=== PATIENT | female | born 1990 | race Caucasian/White ===

== ENCOUNTER 2017-01-15 15:59 | Inpatient (IN) | payer OTHER ==
[~2017-01-15] VITALS: Ht 157.5 cm; Wt 56.7 kg
--- NOTE | ~2017-01-15 | PR ---
[place], [place] PROGRESS NOTE NAME: LYNDA MORENO UNIT #: [id number] ROOM: 425 DOCTOR: LENNY WHARTON MD BIRTHDATE: [birth year] DOS: 01/18/2017 SUBJECTIVE: The patient is continuing to complain of pain and she is awaiting a laparotomy this morning. She does not have any complaints of fever, chills, chest pains, palpitations, any bowel or bladder complaints. PHYSICAL EXAMINATION: VITAL SIGNS: Graphic trend shows a pressure of 108/58, pulse is 64, respirations 20, temperature 98.0. LUNGS: Diminished breath sounds, clear. HEART: Regular. ABDOMEN: Soft. Tenderness diffusely. Abdomen is soft and scaphoid. EXTREMITIES: Without any edema. ASSESSMENT AND PLAN: 1. Acute abdominal pain with elevated white cell count with the CT findings of showing a possibility of appendicitis. She is going for a laparotomy this morning. 2. Endometriosis status post total abdominal hysterectomy. She may have endometriosis in other sites, which could be causing her abdominal pain. White cell count has trended down and is down to 11.2. Basic metabolic panel within normal limits. Urine culture shows no bacterial growth. Continue meds. Awaiting Surgical input this morning. LENNY WHARTON MD CM:PNTRANS [phone] LENNY WHARTON MD 01/19/17 0440 interface
--- NOTE | ~2017-01-15 | WRIGHTHP ---
[place], [place] PATIENT HISTORY AND PHYSICAL EXAM [id number] UN[facility] #: [id number] ROOM: 425 DOCTOR: REHAN ROSADO MD BIRTHDATE: [birth year] DOS: 01/15/2017 DIAGNOSES: 1. A 26-year-old female with a past medical history of nicotine smoke dependence. 2. Total hysterectomy for endometriosis. 3. Suicide attempt on 12/24/2014. 4. Generalized anxiety disorder. 5. Major depression, recurrent. The patient presented to the Emergency Department at [place] [facility] with severe right lower quadrant pains starting yesterday. It was going into her right back, starting around 3:00 p.m. The patient with some nausea, but no vomiting, no diarrhea. CT of the abdomen showed possible perforation of the appendix and Dr. Wheatley, the surgeon, reviewed the CAT scan images. I did not see any free air compatible with perforation and the appendix could not be visualized. The patient was admitted for abdominal pains after evaluation by Surgery, who will plan to perform an appendicectomy on Wednesday. The patient says the pain is much better controlled with Dilaudid, but she needs it every 2 hours as compared to every 4 hours. The patient has been able to tolerate some diet and is not vomiting. No chest pains, no shortness of breath, no GI or urinary symptoms. REVIEW OF SYSTEMS: LUNGS: No increasing shortness of breath or wheezing. GASTROINTESTINAL: Some nausea earlier on, but no vomiting or diarrhea or constipation. CARDIOVASCULAR: No chest pain, no palpitations. FAMILY HISTORY: Noncontributory. ALLERGIES: Known allergies to IVP DYE, PENICILLINS, SULFUR AND IODINE. PHYSICAL EXAMINATION: GENERAL: Alert and oriented x 3, in no visible distress. HEENT AND NECK: Extraocular movements are intact. Sclerae are anicteric. Oral mucosa is moist and clean. No obvious facial weakness. Neck is supple without any lymphadenopathy. No thyromegaly. No JVD. No carotid arterial bruits. LUNGS: Clear to auscultation. No wheezing. No rhonchi. CARDIOVASCULAR SYSTEM: Heart rate is regular in rate and rhythm. S1 and S2 normally audible. No significant murmur or any other abnormal cardiac sounds. ABDOMEN: Severe right lower quadrant tenderness and some guarding, no rigidity, no rebound tenderness. EXTREMITIES: Without significant cyanosis or edema. Warm to touch. CENTRAL NERVOUS SYSTEM: Alert and oriented x 3. Cranial nerves II-XII are intact. Speech is normal. The patient is able to move all extremities. Normal muscle strength. Deep tendon reflexes are equal on both sides. Plantars were downgoing. LABORATORY DATA: Urine cultures are negative. CBC: White cell count improved [place], [place] PATIENT HISTORY AND PHYSICAL EXAM NAME: LYNDA MORENO UNIT #: [id number] ROOM: 425 DOCTOR: REHAN ROSADO MD BIRTHDATE: [birth year] to 14,000 from 23,000. Normal serum electrolytes, bilirubin, liver enzymes. CT of the abdomen and pelvis suspected to have free air within the abdomen and pelvis compatible with visceral perforation and no appendix was visualized. Apparently, Dr. Wheatley looked at the CT scan of the abdomen and did not see any signs of perforation or air and he called me and he has decided to operate on the patient on Wednesday because she is clinically improving and he did not think there is any obvious perforation. There is a suspicion of acute appendicitis and he is being treated with Flagyl and Levaquin and followed very closely. The pain is being controlled with Dilaudid and now add a fentanyl patch. 1. Nicotine smoke dependence. The patient encouraged to stop of smoking cigarettes. The patient already on nicotine patch and I added nicotine inhaler to be used as needed. The patient says she will try to stop smoking cigarettes from now on. 2. Generalized anxiety disorder to be treated and controlled. 3. Major depression, recurrent, mild. Patient is not suicidal to be treated and controlled. REHAN ROSADO MD CM:HISPHYS:PATIENT HISTORY AND PHYSICAL EXAMINATION 36 [phone] REHAN ROSADO MD 01/16/172041 interface
--- NOTE | ~2017-01-15 | DS ---
[place], [place] DISCHARGE SUMMARY NAME: LYNDA MORENO UNIT #: [id number] ROOM: 425 DOCTOR: REHAN ROSADO MD BIRTHDATE: [birth year] DOS: 01/19/2017 DISCHARGE DIAGNOSES: 1. Acute appendicitis, status post appendicectomy. The patient is doing well. 2. Hypokalemia, treated with extra potassium supplements. 3. History of endometriosis and abdominal hysterectomy. 4. Suicide attempt on 12/24/2016. 5. Generalized anxiety disorder. 6. Major depression, recurrent. 7. Nicotine smoke dependence. HOSPITAL COURSE: The patient was admitted to [facility] after she presented with severe right lower quadrant pain and some nausea, but no vomiting, no diarrhea, starting around 3 p.m. The pains were going into her right back. The patient was admitted and started on antibiotics and her elevated white cell count 24,000 improved. The patient was finally taken for laparoscopic surgery on Wednesday. An appendectomy was performed. Following appendectomy, the patient still has significant pain and some abdominal distention, but she was seen by her surgeon, Dr. Wheatley and cleared for discharge. The patient is moving her bowels, ambulating and eating, still has some mild nausea off and on. Blood counts were repeated today. Leukocytosis has improved. The patient asked to follow up with her primary care physician and surgery within a week. LABORATORY DATA: White cell count of 13,000 after surgery. Hemoglobin 11.2. Normal serum electrolytes. Potassium level of 3.1 after which she was given more potassium. Nicotine smoke dependence. The patient was started on nicotine patch and inhaler and she wants to continue the nicotine patch at home and stop smoking cigarettes. The patient encouraged to stop. The patient going home on Vicodin as needed along with Toradol as prescribed by surgery. DISCHARGE MANAGEMENT: Nicotine patch 21 mg daily, ranitidine 150 mg daily and Vicodin 1 tablet every 4 hours as needed for pain. Follow up with Dr. Wheatley, the surgeon and Dr. Camacho Foote, her PCP with a week. [place], [place] DISCHARGE SUMMARY NAME: LYNDA MORENO UNIT #: [id number] ROOM: 425 DOCTOR: REHAN ROSADO MD BIRTHDATE: [birth year] REHAN ROSADO MD CM:FERNANDO [phone] REHAN ROSADO MD 01/19/[id number] interface
--- NOTE | ~2017-01-15 | PR ---
[place], [place] PROGRESS NOTE NAME: LYNDA MORENO UNIT #: [id number] ROOM: 425 DOCTOR: REHAN ROSADO MD BIRTHDATE: [birth year] DOS: 01/17/2017 SUBJECTIVE: The patient's abdominal pain is slightly better and Toradol is working well for her. OBJECTIVE: VITAL SIGNS: Blood pressure 120/79, heart rate 71 beats per minute, breathing 20 times per minute, temperature 98.6 degrees Fahrenheit. GENERAL APPEARANCE: The patient is alert and oriented x 3, in no visible distress. HEENT AND NECK: Exam within normal limits. CARDIOVASCULAR SYSTEM: Heart rate is regular in rate and rhythm. S1 and S2 normally audible. LUNGS: Clear to auscultation. ABDOMEN: Abdominal pain and right lower quadrant tenderness, no rigidity, guarding or rebound tenderness. EXTREMITIES: Without significant cyanosis or edema. IMPRESSION: 1. The patient with acute appendicitis going for appendectomy tomorrow. White cell count with antibiotic treatment has improved to 11,000 from 24,000 at admission. The patient is able to tolerate diet. The patient has been on Flagyl and Levaquin. 2. Abdominal pain is controlled with Toradol now and occasional Dilaudid. 3. Nicotine smoke dependence. The patient on nicotine inhaler and nicotine patch. 4. Generalized anxiety disorder treated and controlled. 5. Major depression, recurrent, mild. Patient is not suicidal, was treated and controlled. REHAN ROSADO MD CM:PNTRANS [phone] REHAN ROSADO MD 01/17/17 2258 interface
[~2017-01-15 15:59] MED LIST: ANAPROX DS550 MG PO; ATARAX,VISTARIL50 MG PO; ATIVAN0.5 MG PO; ATIVAN1 MG PO; CIPRO250 MG PO; CLARITIN10 MG PO; CLINDAMYCIN HC150 MG PO; CYMBALTA30 MG PO; DEPO-PROVER150 MG/ML IM; DIFLUCAN150 MG PO; DOXYCYCLINE MO100 MG PO; DULOXETINE HCL60 MG PO; FLAGYL500 MG PO; HYDROCODONE BIT1 T11 PO; LATU40TA PO; MACROBID100 M1 PO; NAPROSYN375 MG PO; NKHM; PERCOCET 325 MG1 TA2 PO; PROZAC20 MG PO; SKELAXIN800 M1 PO; ULTRAM50 MG PO; VIBRA-TAB100 MG PO; VICODIN 5/500 505 M1 PO; VICODIN 5/500 505 MG PO; VICODIN 500 MG-1 TAB PO; VOLTAREN50 M1 PO; XANAX0.25 MG PO; XANAX0.5 MG; ZITHROMAX Z PA250 MG PO; ZITHROMAX250 MG PO
[2017-01-15 16:13] VITALS: BP 108/35
[2017-01-15 16:34] LABS: BILIRUBIN NEGATIVE (NEGATIVE); BLOOD 2+ (NEGATIVE); CLARITY SL CLOUDY (CLEAR); COLOR YELLOW (YELLOW); GLUCOSE NEGATIVE (NEGATIVE); KETONE NEGATIVE (NEGATIVE); LEUKO ESTERASE TRACE (NEGATIVE); NITRITE NEGATIVE (NEGATIVE); PH 5.5 (5.0-9.0); SPECIFIC GRAVITY 1.025 (1.005-1.030); UROBILINOGEN 0.2 E.U./dl (0.2-1.0)
[2017-01-15 16:41] LABS: BACTERIA TRACE; MUCOUS 2+
[2017-01-15 16:44] LABS: BASO # 0.1 10*3/uL (0.0-0.1); BASO % 0.2 % (0.0-1.0); EOS # 0.2 10*3/uL (0.0-0.4); EOS % 0.7 % (1.0-4.0); HEMATOCRIT 39.8 % (37.0-47.0); HEMOGLOBIN 13.6 g/dl (12.0-16.0); LYMPH # 2.3 10*3/uL (1.3-4.4); MEAN CELL VOLUME 92.3 fl (81.0-99.0); MEAN CORPUSCULAR HGB 31.6 pg (27.0-31.0); MEAN CORPUSCULAR HGB CONC 34.2 g/dl (33.0-37.0); MONO # 0.9 10*3/uL (0.1-1.0); NEUT # 19.7 10*3/uL (2.3-7.9); NEUT % 84.5 % (47.0-73.0); PLATELET COUNT AUTOMATED 273 10*3/uL (130-400); RED BLOOD COUNT 4.31 10*6/uL (4.10-5.10); RED CELL DISTRI WIDTH 11.7 % (0-14.5); WHITE BLOOD COUNT 23.4 10*3/uL (4.8-10.8)
[2017-01-15 16:58] LABS: ALBUMIN 3.8 gm/dl (3.1-4.5); ALKALINE PHOSPHATASE 107 U/L (45-117); BUN 11 mg/dl (7-24); CHLORIDE 105 mmol/L (98-107); CREATININE 0.62 mg/dL (0.55-1.02); LIPASE 78 U/L (73-393); POTASSIUM 3.5 mmol/L (3.5-5.1); SGOT/AST 23 IU/L (3-35); SGPT/ALT 35 U/L (12-78); SODIUM 138 mmol/L (136-145); TOTAL PROTEIN 7.8 gm/dL (6.4-8.2)
[2017-01-15 19:28] VITALS: BP 128/84
--- NOTE | 2017-01-15 20:08 | NUR ---
PATIENT RESTING IN BED STATES SHE FEELS BETTER POST PAIN MEDS RESP EASY NO SIGN S OF DISTRESS
[2017-01-15 20:28] VITALS: BP 101/61
[2017-01-15 20:50] VITALS: BP 100/61
--- NOTE | 2017-01-15 20:50 | NUR ---
Time: 849 A 26 year old FEMALE admitted to under services of DR. ASHLEE PETTY,REHAN Macias Pt. arrived via bed from ER. Chief complaint: ABDOMINAL PAIN. SKIP CABA
[2017-01-15] MEDS ORDERED: LEXAPRO20 MG PO (20:56)
[2017-01-15] MEDS ORDERED: IBU800 MG PO (20:56)
[2017-01-15] MEDS ORDERED: PROTONIX40 MG PO (20:56)
[2017-01-15] MEDS ORDERED: NEURONTIN600 MG PO (20:56)
--- NOTE | 2017-01-15 21:00 | NUR ---
SPOKE WITH DR. ROSADO AT THIS TIME FOR ADMISSION ORDERS, ORDERS RECIEVED FOR A STAT CONSULT WITH SURGERY AND THAT THE PATIENT COULD HAVE 1 MG OF IV DILAUDID EVERY 4 HOURS. AND TO GET THE REST OF THE ORDERS FROM DR. CRUZ
--- NOTE | 2017-01-15 21:05 | NUR ---
SPOKE WITH DR. CRUZ AT THIS TIME. DR. CRUZ ORDERS FOR THE PATIENT TO HAVE 1G OF AZACTAM EVERY 8 HOURS, NPO STATUS WITH ICE CHIPS UNTIL MIDNIGHT FOR POSSIBLE SURGERY. NORMAL SALINE TO RUN AT 125 AN HOUR. CBC AND CMP TO BE ORDERED IN THE MORNING. DR. CRUZ ALSO REQUESTED PATIENTS MEDICAL RECORDS FROM [place] TO DETERMINE IF SHE STILL HAS APPENDIX FROM HER HAVING HER HYSTERECTOMY REMOVED IN AUGUST OF THIS YEAR. PATIENT UNSURE IF SHE STILL HAS APPENDIX
--- NOTE | 2017-01-15 21:46 | NUR ---
PRN DILAUDID GIVEN FOR PT COMPLAINTS OF 9/10 ABDOMINAL PAIN. CALL LIGHT WITHIN REACH, WILL MONITOR
--- NOTE | 2017-01-15 23:00 | NUR ---
PER PT, DILAUDID SOMEWHAT EFFECTIVE
--- NOTE | 2017-01-15 23:00 | NUR ---
SIGNED CONSENT RECIEVED FROM PATIENT TO HAVE HER RECORDS REQUESTED FROM [place]
[2017-01-16] VITALS: BP 116/69
--- NOTE | 2017-01-16 00:15 | NUR ---
PT SLEEPING AT THIS TIME. IV FLUIDS INFUSING, BREATHING IS EASY AND REGULAR. CALL LIGHT WITHIN REACH, WILL MONITOR
--- NOTE | 2017-01-16 02:16 | NUR ---
PRN DILAUDID GIVEN FOR PT COMPLAINTS OF ABDOMINAL PAIN. RATING IT A 9/10. CALL LIGHT WITHIN REACH, WILL MONITOR
--- NOTE | 2017-01-16 03:00 | NUR ---
PRN DILAUDID APPEARS EFFECTIVE, PT SLEEPING
[2017-01-16 06:06] LABS: ALBUMIN 3.2 gm/dl (3.1-4.5); ALKALINE PHOSPHATASE 93 U/L (45-117); BUN 8 mg/dl (7-24); CHLORIDE 107 mmol/L (98-107); CREATININE 0.57 mg/dL (0.55-1.02); POTASSIUM 4.2 mmol/L (3.5-5.1); SGOT/AST 14 IU/L (3-35); SGPT/ALT 25 U/L (12-78); SODIUM 140 mmol/L (136-145); TOTAL PROTEIN 6.8 gm/dL (6.4-8.2)
[2017-01-16 07:06] LABS: BASO % 0.1 % (0.0-1.0); EOS # 0.2 10*3/uL (0.0-0.4); EOS % 1.1 % (1.0-4.0); HEMATOCRIT 34.9 % (37.0-47.0); HEMOGLOBIN 11.5 g/dl (12.0-16.0); LYMPH # 2.8 10*3/uL (1.3-4.4); LYMPH % 19.6 % (27.0-41.0); MEAN CELL VOLUME 96.7 fl (81.0-99.0); MEAN CORPUSCULAR HGB 31.9 pg (27.0-31.0); MEAN PLATELET VOLUME 10.8 fl (9.6-12.3); MONO # 0.9 10*3/uL (0.1-1.0); MONO % 6.6 % (3.0-9.0); NEUT # 10.3 10*3/uL (2.3-7.9); NEUT % 72.2 % (47.0-73.0); PLATELET COUNT AUTOMATED 254 10*3/uL (130-400); RED BLOOD COUNT 3.61 10*6/uL (4.10-5.10); RED CELL DISTRI WIDTH 11.9 % (0-14.5); WHITE BLOOD COUNT 14.3 10*3/uL (4.8-10.8)
[2017-01-16 08:00] VITALS: BP 103/62
--- NOTE | 2017-01-16 08:30 | NUR ---
DILAUDID 1 MG GIVEN FOR C/O RLQ PAIN,12/03.
--- NOTE | 2017-01-16 11:07 | NUR ---
DR HOFF ROUNDED AND SPOKE TO DR Nina ROSADO VIA TELEPHONE REGARDING PT HAVING ELECTIVE APPY ON WEDNESDAY, 2016.
[2017-01-16 12:00] VITALS: BP 102/67
--- NOTE | 2017-01-16 12:33 | NUR ---
DILAUDID 1 MG GIVEN FOR C/O RLQ PAIN,12/03.
[2017-01-16 16:00] VITALS: BP 117/64
--- NOTE | 2017-01-16 16:35 | NUR ---
DILAUDID 1 MG GIVEN FOR C/O RLQ PAIN,12/03.
[2017-01-16 20:00] VITALS: BP 115/70
--- NOTE | 2017-01-16 20:45 | NUR ---
PT C/O NAUSEA DURING ASSESSMENT. PT YELLS, "I HAD A BOWEL MOVEMENT YESTERDAY AND NO, I'M NOT PASSING GAS!" THIS NURSE ATTEMPTED PT TEACHING ON MEDS AND DIET. PT NON RECEPTIVE. CALL LIGHT IN REACH.
--- NOTE | 2017-01-16 22:00 | NUR ---
DR. ROSADO NOTIFIED OF PT REQUEST TO REMOVE HEART MONITOR TO SHOWER AND QUESTIONING WHY SHE IS ON THE HEART MONITOR NOW. DR. ROSADO GAVE OK FOR PT TO SHOWER AND EXPLAINED THE NEED FOR HEART MONITOR. INFORMATION RELAYED TO PT.
--- NOTE | 2017-01-16 22:02 | NUR ---
PT C/O NAUSEA. PT STATES IT IS FROM THE DURAGESIC PATCH. PT REMOVED DURAGESIC PATCH AND THREW IT IN THE TRASH CAN. PT REMOVED HEART MONITOR. PT AMBULATING UP TO NURSES STATION AND THREW DURAGESIC PATCH AT ANOTHER NURSE, YELLING, "I'M NOT A DRUG ADDICT." ATTEMPTED TO SPEAK WITH PT AND GIVE PT TEACHING RE DURAGESIC PAIN PATCH, HEART MONITOR, DILAUDID. PT YELLING AT THIS NURSE. PT YELLING SHE IS LEAVING AND BEGINS TO TAKE IV DRSG OFF. ADVISED PT THAT SHE IS WELCOME TO LEAVE BUT THIS NURSE HAS TO REMOVE IV AND HAVE HER SIGN AMA PAPERS. PT SAYS SHE IS GOING TO STAY IF SHE CAN GET A SHOWER AND DILAUDID. ADVISED PT THAT THIS NURSE SPOKE WITH DR. ROSADO AND HE GAVE THE OK TO REMOVE TELEMETRY TO GET A SHOWER AND DILAUDID IS STILL ORDERED FOR PAIN. PT ADVISED THAT SHE NEEDS TO REPLACE HEART MONITOR AFTER SHE IS DONE SHOWERING. PT AGREEABLE. PT HEARD YELLING AND ARGUING WITH MALE VISITOR IN ROOM WHILE IN SHOWER. WILL CONT. TO MONITOR.
--- NOTE | 2017-01-16 22:30 | NUR ---
PT ALLOWED THIS NURSE TO REDRESS IV SITE AND REAPPLY TELEMETRY. PT CONTINUES TO YELL AND CURSE AT THIS NURSE. PT NON RECEPTIVE TO PT TEACHING ON PAIN MEDS AND DIET. PT EATING YOGURT. ASKED PT IF SHE NEEDED ANYTHING ELSE. PT STATES, "SHE DOESN'T WANT ANY OTHER PAIN MEDS EXCEPT DILAUDID." PT ADVISED THAT SHE STILL HAD DILAUDID AVAILABLE. MALE VISITOR REMAINS AT BEDSIDE.
--- NOTE | 2017-01-16 23:40 | NUR ---
PT TALKING TO MOM WHILE THIS NURSE IS ADMINISTERING DILAUDID IVP AND STATES, "THESE NURSES BETTER GET THEIR SHIT TOGETHER AND DO THINS RIGHT OR I'M GONNA TERESA THEM LIKE I SUED [place]. THEN MY DAUGHTER WILL BE SET FOR LIFE." PT RUDE AND DEMANDING WITH STAFF. ALL NEEDS MET. CALL LIGHT IN REACH.
[2017-01-17] VITALS: BP 114/82
--- NOTE | 2017-01-17 | NUR ---
PT RESTING QUIETLY IN BED AT THIS TIME. PRN DILAUDID EFFECTIVE FOR PAIN RELIEF.
--- NOTE | 2017-01-17 04:00 | NUR ---
PT RESTING QUIETLY IN BED WITH EYES CLOSED. NO S/S OF DISTRESS NOTED.
--- NOTE | 2017-01-17 04:40 | NUR ---
24 HR chart check completed.
[2017-01-17 06:09] LABS: BASO % 0.3 % (0.0-1.0); EOS # 0.2 10*3/uL (0.0-0.4); EOS % 1.7 % (1.0-4.0); HEMATOCRIT 34.1 % (37.0-47.0); HEMOGLOBIN 11.5 g/dl (12.0-16.0); LYMPH # 2.7 10*3/uL (1.3-4.4); LYMPH % 23.9 % (27.0-41.0); MEAN CELL VOLUME 95.8 fl (81.0-99.0); MEAN CORPUSCULAR HGB 32.3 pg (27.0-31.0); MEAN CORPUSCULAR HGB CONC 33.7 g/dl (33.0-37.0); MEAN PLATELET VOLUME 10.5 fl (9.6-12.3); MONO # 1.1 10*3/uL (0.1-1.0); MONO % 9.5 % (3.0-9.0); NEUT # 7.2 10*3/uL (2.3-7.9); NEUT % 64.1 % (47.0-73.0); PLATELET COUNT AUTOMATED 242 10*3/uL (130-400); RED BLOOD COUNT 3.56 10*6/uL (4.10-5.10); RED CELL DISTRI WIDTH 11.8 % (0-14.5); WHITE BLOOD COUNT 11.2 10*3/uL (4.8-10.8)
[2017-01-17 06:37] LABS: BUN 3 mg/dl (7-24); CHLORIDE 106 mmol/L (98-107); POTASSIUM 3.9 mmol/L (3.5-5.1); SODIUM 140 mmol/L (136-145)
[2017-01-17 06:40] LABS: CREATININE 0.51 mg/dL (0.55-1.02)
[2017-01-17 08:00] VITALS: BP 97/70
--- NOTE | 2017-01-17 08:44 | NUR ---
DILAUDID 1MG GIVEN PER MAR FOR C/O RLQ PAIN,01/03.
--- NOTE | 2017-01-17 12:02 | NUR ---
DR ALMEIDA ROUNDED AND DISCUSS PROCEDURE IN AM, ORDERS RECEIVED. PT BEHAVIOR ARGUMENTATIVE WITH SURGEON AND WAS NOT RECEPTIVE TO TEACHING AT THIS TIME.
--- NOTE | 2017-01-17 13:55 | NUR ---
DR ALMEIDA ROUNDED AND DISCUSSED PROCEDURE IN OR IN AM.ORDERS RECIEVED. PT WAS NOT RECEPTIVE TO EDUCATION AT THIS TIME. CALL LIGHT IN REACH.
--- NOTE | 2017-01-17 14:00 | NUR ---
EMOTIONAL SUPPORT PROVIDED. PT RECEPTIVE TO TEACHING AT THIS TIME. EXPLAINED AGAIN WHAT DR ALMEIDA HAD SAID. PT NOW CALM AND COOPERATIVE. VOICES NO OTHER NEEDS AT THIS TIME. CALL LIGHT IN REACH.
--- NOTE | 2017-01-17 15:44 | NUR ---
REGAINED IV SITE AFTER MULTIPLE ATTEMPTS IV.started right forearm with #22 protective cath after 4 attempts. Site prepped with Chloroprep. Sterile dressing applied. Patient tolerated procedure well. IV0.9 NS infusing at 100 cc/hr. MEDICATED PT WITH IV TORADOL [address] ALMEIDA'S ORDER, REASSESSED PAIN NOW 5 AND TORADOL EFFECTIVE. UTE FARIAS
[2017-01-17 16:00] VITALS: BP 120/79
--- NOTE | 2017-01-17 18:35 | NUR ---
TORADOL 15 MG GIVEN FOR C/O RLQ PAIN, 910.
--- NOTE | 2017-01-17 20:00 | NUR ---
ASSUMED CARE OF PATIENT. ASSESSMENT COMPLETE. RESTING IN BED. CALL LIGHT IN REACH. WILL CONTINUE TO MONITOR.
--- NOTE | 2017-01-17 21:31 | NUR ---
PT WAS GIVEN PRN DILAUDID FOR PAIN. WILL CONITUE TO MONITOR. CALL LIGHT IN REACH.
--- NOTE | 2017-01-17 22:04 | NUR ---
PT STATES EARLIER DILAUDID "HELPING" WITH PAIN RELIEF.
[2017-01-18] VITALS (9 sets, daily range): BP systolic 102–128; BP diastolic 51–73
--- NOTE | 2017-01-18 02:00 | NUR ---
SLEEPING. RESP EASY AND NONLABORED ON ROOM AIR. NO DISTRESS NOTED. IVF INFUSING PER ORDER WITHOUT DIFFICULTY. CALL LIGHT IN REACH. WILL CONTINUE TO MONITOR.
--- NOTE | 2017-01-18 02:30 | NUR ---
PT STATES MEDICATION WAS EFFECTIVE. WILL CONITNUE TO MONITOR. CALL LIGHT IN REACH
--- NOTE | 2017-01-18 04:06 | NUR ---
pT GIVEN PRN tORDAL FOR PAIN. WILL CONTINUE TO MONITOR.
--- NOTE | 2017-01-18 13:08 | NUR ---
PATIENT BACK FROM SURGERY, IS ALERT AND ORIENTED, REFUSED SCD TO LEFT LEG, STATES HAS PAIN D/T NERVE DAMAGE IN THAT LEG.
--- NOTE | 2017-01-18 13:38 | NUR ---
MEDICATED WITH PRN IV DILAUDID FOR POST OP ABDOMINAL INCISION PAIN.
--- NOTE | 2017-01-18 14:21 | NUR ---
PRN IV DILAUDID EFFECTIVE, PER PATIENT.
--- NOTE | 2017-01-18 15:00 | NUR ---
ASSUMED CARE OF PT AT THIS TIME, PT RESTING IN BED AT THIS TIME, CALL LIGHT WITH IN REACH
--- NOTE | 2017-01-18 15:59 | NUR ---
PT C/O INCISIONAL PAIN REQUESTED AT ADMINSITERED DILAUDID ORDERED, WILL MONITOR EFFECTS
--- NOTE | 2017-01-18 16:59 | NUR ---
PT REPORTS DECREASED PAIN LEVEL AND REPORTS THAT DILAUDID IS EFFECTIVE
--- NOTE | 2017-01-18 22:03 | NUR ---
PT C/O PAIN IN THE ABDOMINAL INCISIONS, REQUSTED PRN PAIN MEDICATION, ADMINSITRED DILAUDID IV PRN PER ORDERS, WILL MONITOR EFFECTS
--- NOTE | 2017-01-18 23:03 | NUR ---
PT RESTING IN BED WATCHING TV, PRN PAIN MEDICATION EFFECTIVE AT THIS TIME, NO FUTHER C/O PAIN, CALL LIGHT WITH IN REACH
[2017-01-19] VITALS: BP 125/69
--- NOTE | 2017-01-19 00:03 | NUR ---
CALLED AND SPOKE TO DR ALMEIDA TO QUESTION ORDER FOR LR @ 125 ML/HR. STATES ORDER CAN BE D/C'D LONG PT IS HAVING GOOD ORAL INTAKE
--- NOTE | 2017-01-19 02:25 | NUR ---
PT C/O PAIN, REQUESTED PRN PAIN MEDICATION, PT AGITIATED AT THIS TIME, STATING THAT SHE IS NOT A JUNKIE, BECOMING INCREASING AGGITATED WHILE TALKING, PT ANGRY AT STAFF, ANGRY AT SURGEON, STATING THAT IF SHE IS UP THEN HE NEEDS TO BE UP TO, STATES THAT SHE HAS A LAWSUIT AGAINST [facility] AND IS NOT AFRAID TO FILE ONE AGAINST HERE, PT STATES THAT WANT PAIN MEDICATIONS UPON ATTEMPTING TO FLUSH LINE WITH NSS, AREA BECAME PAINFUL AND SITE WOULD NOT FLUSH, PT STATES TO CALL THE MD, SHE HAS BEEN THROUGH ENOUGH AND REFUSES TO HAVE IV LINE REESTABLISHED, PT STATES THAT SHE HAS BEEN STOPPED FROM ALL MEDICATIONS, AND STATES THAT SHE HAS NERVE DAMAGE FROM PREVIOUS SURGERY. CALL PLACED TO DR ALMEIDA, AND UPDATED ON PT, DR ALMEIDA SAID TO D/C IV ANTIBIOTICS, AND TO GIVE PO MEDICATIONS FOR PAIN. PT MEDICATED WITH NORCO PO PRN PER ORDERS, WILL MONITOR EFFECTS
--- NOTE | 2017-01-19 03:00 | NUR ---
PT CALLED VISITOR IN AT THIS TIME, MALE ARRIVED TO FLOOR ASKED WHERE PTS ROOM WAS, VISITOR DIRECTED TO ROOM AND DOOR SHUT
--- NOTE | 2017-01-19 03:30 | NUR ---
PT HAS NO COMPLIANTS AT THIS TIME, CALL LIGHT WITH IN [place] [facility]
--- NOTE | 2017-01-19 06:20 | NUR ---
PT REFUSING TO HAVE LABS DRAWN AT THIS TIME, STATING THAT SHE HAS BEEN TAKING OFF HER PAIN MEDICATIONS, PAIN MEDICATIONS STILL AVAILABLE THROUGH IV, PT REFUSED TO HAVE IV RESTARTED
--- NOTE | 2017-01-19 06:26 | NUR ---
PT REPORTED TO STONE CHIMNEY MASON THAT SHE HAS BEEN TAKEN OFF HER PAIN MEDICATIONS IS REFUSING TO HAVE LABS DRAWN AT THIS TIME, NOTIFIED
--- NOTE | 2017-01-19 06:29 | NUR ---
CALL PLACED TO AT THIS TIME, MESSAGE LEFT FOR HIM TO RETURN PHONE CALL
--- NOTE | 2017-01-19 06:39 | NUR ---
RETURNED CALL, NEW ORDER TO HAVE NORCO EVERY 4 HOURS PO PRN
[2017-01-19 08:00] VITALS: BP 98/52
--- NOTE | 2017-01-19 10:20 | NUR ---
WHEN PATIENT GIVEN HER MEDICATION WAS ADVISED THAT PATIENT HAD NO IV FOR PAIN MEDICATION. NORCO WAS OFFERED PER ORDER AND PATIENT REFUSED AND SAID THAT IT DID NOT WORK. PATIENT REFUSED TO HAVE ANOTHER IV PLACED. PATIENT WANTED DILAUDID IN TABLET FORM. WENT TO THE NURSE DESK AND CALLED DR. ROSADO. WHILE LOOKING FOR NUMBER, THE BOYFRIEND SAID SHE WANTED DILAUDID OR ULTRAM OR SHE WAS WALKING OUT THE DOOR. DR. ROSADO STATED TO CHANGE THE ORDER TO TO TABLET FORM.
--- NOTE | 2017-01-19 10:30 | NUR ---
BOYFRIEND CAME TO NURSE DESK AND ASKED FOR W/C SO HE COULD TAKE THE PATIENT OUTSIDE. HE STATED THAT SHE HAD FILLED OUT A FORM. WHILE LOOKING AT THE FORM THE BOYFRIEND LEFT THE DESK. SEARCH DIRECTOR WAS CALLED AND ASKED ABOUT THE FORM. AFTER HANGING UP THE PHONE WENT TO THE ROOM TO ADVISE PATIENT THAT THE MEDICATION WAS ORDERED AND THAT SHE COULD NOT GO OUT AT THIS TIME AND THE ROOM WAS EMPTY.
--- NOTE | 2017-01-19 11:19 | NUR ---
AT 1119 PATIENT REQUESTED DILAUDID FOR PAIN IN ABDOMEN, 01/03. PATIENT LYING IN BED, EYES CLOSED.
--- NOTE | 2017-01-19 12:00 | NUR ---
AT 1200 PATIENT SLEEPING IN BED, PAIN MEDICATION APPARENTLY EFFECTIVE. NO S/S OF DISTRESS.
--- NOTE | 2017-01-19 15:43 | NUR ---
AT 1543 PATIENT REQUESTED MEDICATION FOR PAIN 8/10 IN ABDOMEN, DILAUDID GIVEN PER ORDER.
[2017-01-19 16:00] VITALS: BP 110/70
[2017-01-19 16:52] LABS: BASO % 0.2 % (0.0-1.0); EOS % 0.3 % (1.0-4.0); HEMOGLOBIN 11.2 g/dl (12.0-16.0); LYMPH # 3.9 10*3/uL (1.3-4.4); LYMPH % 29.1 % (27.0-41.0); MEAN CORPUSCULAR HGB 31.5 pg (27.0-31.0); MEAN CORPUSCULAR HGB CONC 33.9 g/dl (33.0-37.0); MEAN PLATELET VOLUME 10.2 fl (9.6-12.3); MONO % 7.3 % (3.0-9.0); NEUT # 8.5 10*3/uL (2.3-7.9); NEUT % 62.7 % (47.0-73.0); PLATELET COUNT AUTOMATED 286 10*3/uL (130-400); RED BLOOD COUNT 3.55 10*6/uL (4.10-5.10); RED CELL DISTRI WIDTH 11.7 % (0-14.5); WHITE BLOOD COUNT 13.5 10*3/uL (4.8-10.8)
[2017-01-19 17:07] LABS: ALBUMIN 3.1 gm/dl (3.1-4.5); ALKALINE PHOSPHATASE 100 U/L (45-117); BUN 10 mg/dl (7-24); CHLORIDE 105 mmol/L (98-107); CREATININE 0.61 mg/dL (0.55-1.02); POTASSIUM 3.1 mmol/L (3.5-5.1); SGOT/AST 13 IU/L (3-35); SGPT/ALT 20 U/L (12-78); SODIUM 139 mmol/L (136-145); TOTAL PROTEIN 7.3 gm/dL (6.4-8.2)
[2017-01-19] MEDS ORDERED: NICODERM T (18:38)
[2017-01-19] MEDS ORDERED: NORCO 5/325 PO (18:38)
[2017-01-19] MEDS ORDERED: KETOROLAC15 MG/1 M2 PO (18:38)
--- NOTE | 2017-01-19 19:51 | NUR ---
Discharge instructions reviewed with patient/family. Patient receptive and verbalizes understanding. Follow-up care arranged. Written instructions given to patient/family. MIGUEL ANGELO
== END 2017-01-19 19:51 | disposition home or self-care (01) | DRG 341 ==
LOC: ED 15:59 → EDHOLD 19:40 → 4E 19:40 → EDHOLD 19:41 → 4E 20:22
PROVIDERS: Physician Assistant; ADMIT Internal Medicine
PROC: 0DTJ4ZZ Resection of Appendix, Percutaneous Endoscopic Approach (ICD-10-PCS; principal; 2017-01-19)
DX: K37 Unspecified appendicitis (principal); K65.9 Peritonitis, unspecified; F32.9 Major depressive disorder, single episode, unspecified; F10.20 Alcohol dependence, uncomplicated; F41.1 Generalized anxiety disorder; F17.210 Nicotine dependence, cigarettes, uncomplicated; G89.29 Other chronic pain; R10.2 Pelvic and perineal pain; Z88.0 Allergy status to penicillin; Z88.2 Allergy status to sulfonamides; Z90.710 Acquired absence of both cervix and uterus; Z82.49 Family history of ischemic heart disease and other diseases of the circulatory system; Z81.8 Family history of other mental and behavioral disorders; Z91.041 Radiographic dye allergy status

== ENCOUNTER → 2017-01-29 | Outpatient (CLI) | payer OTHER ==
[~2017-01-29] MED LIST changes: +IBU800 MG PO; +KETOROLAC15 MG/1 M2 PO; +LEXAPRO20 MG PO; +NEURONTIN600 MG PO; +NICODERM T; +NORCO 5/325 PO; +PROTONIX40 MG PO
== END | disposition home or self-care (01) ==
LOC: US 13:27
DX: R60.0 Localized edema (principal)

== ENCOUNTER → 2017-02-08 | Outpatient (CLI) | payer OTHER | END | disposition home or self-care (01) | LOC: US 09:30 | DX: I73.9 Peripheral vascular disease, unspecified (principal); L60.8 Other nail disorders ==

== ENCOUNTER → 2017-06-30 | Outpatient (CLI) | payer OTHER ==
[2017-06-30 17:54] LABS: CPK 70 U/L (26-192)
== END | disposition home or self-care (01) ==
LOC: LAB 17:02
PROVIDERS: Internal Medicine
DX: Z13.21 Encounter for screening for nutritional disorder (principal); Z13.1 Encounter for screening for diabetes mellitus; Z13.220 Encounter for screening for lipoid disorders

== ENCOUNTER 2017-08-10 10:25 | Emergency (ER) | payer OTHER ==
[~2017-08-10] VITALS: Ht 157.4 cm; Wt 57.6 kg
[2017-08-10] MEDS ORDERED: ATIVAN0.5 MG PO (12:05)
== END 2017-08-10 11:41 | disposition home or self-care (01) ==
LOC: ED 10:25
DX: F41.9 Anxiety disorder, unspecified (principal); F17.200 Nicotine dependence, unspecified, uncomplicated; Z98.51 Tubal ligation status; Z79.899 Other long term (current) drug therapy; Z91.041 Radiographic dye allergy status; Z88.0 Allergy status to penicillin; Z88.2 Allergy status to sulfonamides

== ENCOUNTER 2017-11-18 22:35 | Emergency (ER) | payer OTHER ==
[~2017-11-18] VITALS: Ht 157.4 cm; Wt 59.0 kg
[2017-11-18] MEDS ORDERED: NEURONTIN300 MG PO (22:40)
[2017-11-18] MEDS ORDERED: ESTRADIOL1 EAC5 TD (22:40)
[2017-11-18 23:30] LABS: BASO % 0.4 % (0.0-1.0); EOS # 0.2 10*3/uL (0.0-0.4); EOS % 2.2 % (1.0-4.0); HEMATOCRIT 38.1 % (37.0-47.0); HEMOGLOBIN 12.6 g/dl (12.0-16.0); LYMPH # 4.1 10*3/uL (1.3-4.4); LYMPH % 36.5 % (27.0-41.0); MEAN CELL VOLUME 94.3 fl (81.0-99.0); MEAN CORPUSCULAR HGB 31.2 pg (27.0-31.0); MEAN CORPUSCULAR HGB CONC 33.1 g/dl (33.0-37.0); MEAN PLATELET VOLUME 10.2 fl (9.6-12.3); MONO # 0.9 10*3/uL (0.1-1.0); MONO % 8.2 % (3.0-9.0); NEUT # 5.8 10*3/uL (2.3-7.9); NEUT % 52.5 % (47.0-73.0); PLATELET COUNT AUTOMATED 258 10*3/uL (130-400); RED BLOOD COUNT 4.04 10*6/uL (4.10-5.10); RED CELL DISTRI WIDTH 12.1 % (0-14.5); WHITE BLOOD COUNT 11.1 10*3/uL (4.8-10.8)
[2017-11-18 23:46] LABS: BILIRUBIN NEGATIVE (NEGATIVE); BLOOD NEGATIVE (NEGATIVE); CLARITY CLEAR (CLEAR); COLOR YELLOW (YELLOW); GLUCOSE NEGATIVE (NEGATIVE); KETONE TRACE (NEGATIVE); LEUKO ESTERASE NEGATIVE (NEGATIVE); NITRITE NEGATIVE (NEGATIVE); PH 6.5 (5.0-9.0)
[2017-11-18 23:47] LABS: ALBUMIN 4.3 gm/dl (3.1-4.5); ALKALINE PHOSPHATASE 115 U/L (45-117); BUN 13 mg/dl (7-24); CHLORIDE 107 mmol/L (98-107); CREATININE 0.72 mg/dL (0.55-1.02); SGOT/AST 27 IU/L (3-35); SGPT/ALT 40 U/L (12-78); SODIUM 142 mmol/L (136-145); TOTAL PROTEIN 7.5 gm/dL (6.4-8.2)
[2017-11-18 23:49] LABS: INTERNATIONAL NORM RATIO 0.9 (2.0-3.5)
[2017-11-18 23:52] LABS: BACTERIA 1+
== END 2017-11-19 07:42 | disposition home or self-care (01) ==
LOC: ED 22:35
PROVIDERS: Physician Assistant
DX: R10.2 Pelvic and perineal pain (principal); R50.9 Fever, unspecified; F17.200 Nicotine dependence, unspecified, uncomplicated; Z90.710 Acquired absence of both cervix and uterus; Z91.041 Radiographic dye allergy status; Z88.0 Allergy status to penicillin; Z88.2 Allergy status to sulfonamides

== ENCOUNTER 2018-03-10 12:19 | Emergency (ER) | payer OTHER ==
[~2018-03-10] VITALS: Ht 157.4 cm; Wt 61.2 kg
[~2018-03-10 12:19] MED LIST changes: +ESTRADIOL1 EAC5 TD; +NEURONTIN300 MG PO
[2018-03-10 12:44] LABS: BASO # 0.1 10*3/uL (0.0-0.1); BASO % 0.5 % (0.0-1.0); EOS # 0.1 10*3/uL (0.0-0.4); EOS % 1.1 % (1.0-4.0); HEMATOCRIT 40.2 % (37.0-47.0); HEMOGLOBIN 13.4 g/dl (12.0-16.0); LYMPH % 29.4 % (27.0-41.0); MEAN CELL VOLUME 95.5 fl (81.0-99.0); MEAN CORPUSCULAR HGB 31.8 pg (27.0-31.0); MEAN CORPUSCULAR HGB CONC 33.3 g/dl (33.0-37.0); MEAN PLATELET VOLUME 10.2 fl (9.6-12.3); MONO # 0.6 10*3/uL (0.1-1.0); MONO % 6.3 % (3.0-9.0); NEUT # 6.3 10*3/uL (2.3-7.9); NEUT % 62.4 % (47.0-73.0); PLATELET COUNT AUTOMATED 278 10*3/uL (130-400); RED BLOOD COUNT 4.21 10*6/uL (4.10-5.10); RED CELL DISTRI WIDTH 12.1 % (0-14.5); WHITE BLOOD COUNT 10.1 10*3/uL (4.8-10.8)
[2018-03-10 12:54] LABS: ACT PARTIAL THROMBO TIME 25.1 SECONDS (20.8-31.5)
[2018-03-10 13:01] LABS: ALBUMIN 4.4 gm/dl (3.1-4.5); ALKALINE PHOSPHATASE 97 U/L (45-117); BUN 9 mg/dl (7-24); CHLORIDE 106 mmol/L (98-107); LIPASE 114 U/L (73-393); POTASSIUM 3.8 mmol/L (3.5-5.1); SGOT/AST 20 IU/L (3-35); SGPT/ALT 27 U/L (12-78); SODIUM 139 mmol/L (136-145); TOTAL PROTEIN 8.2 gm/dL (6.4-8.2)
[2018-03-10 13:30] LABS: BILIRUBIN NEGATIVE (NEGATIVE); BLOOD NEGATIVE (NEGATIVE); CLARITY SL CLOUDY (CLEAR); COLOR YELLOW (YELLOW); GLUCOSE NEGATIVE (NEGATIVE); KETONE NEGATIVE (NEGATIVE); LEUKO ESTERASE NEGATIVE (NEGATIVE); NITRITE NEGATIVE (NEGATIVE); UROBILINOGEN 0.2 E.U./dl (0.2-1.0)
[2018-03-10 13:42] LABS: EPITHELIAL CELLS 21-30; MUCOUS 1+; RBC 0-2 rbc/hpf (0-2); WBC 16-20 wbc/hpf (0-5)
[2018-03-10] MEDS ORDERED: VICODIN 5-3001 EACH PO (15:35)
[2018-03-10] MEDS ORDERED: Zofran4 MG SL (15:35)
== END 2018-03-10 16:10 | disposition home or self-care (01) ==
LOC: ED 12:19
PROVIDERS: Nurse Practitioner Family
DX: R10.32 Left lower quadrant pain (principal); R32 Unspecified urinary incontinence; R11.2 Nausea with vomiting, unspecified; Z91.041 Radiographic dye allergy status; Z88.0 Allergy status to penicillin; Z88.2 Allergy status to sulfonamides; Z90.710 Acquired absence of both cervix and uterus; Z90.722 Acquired absence of ovaries, bilateral; Z90.49 Acquired absence of other specified parts of digestive tract

== ENCOUNTER → 2018-08-17 | Outpatient (CLI) | payer OTHER ==
[~2018-08-17] MED LIST changes: +VICODIN 5-3001 EACH PO; +Zofran4 MG SL
== END | disposition home or self-care (01) ==
LOC: ORTHO 01:29
DX: M25.531 Pain in right wrist (principal); M25.532 Pain in left wrist

== ENCOUNTER → 2018-11-09 | Outpatient (CLI) | payer OTHER | END | disposition home or self-care (01) | LOC: MAMMO 09:00 | DX: N64.52 Nipple discharge (principal); N63.0 Unspecified lump in unspecified breast; R07.81 Pleurodynia ==

== ENCOUNTER → 2019-03-03 | Outpatient (CLI) | payer OTHER ==
[2019-03-03 10:46] LABS: HEMATOCRIT 44.5 % (37.0-47.0); HEMOGLOBIN 14.7 g/dl (12.0-16.0); MEAN CELL VOLUME 94.9 fl (81.0-99.0); MEAN CORPUSCULAR HGB 31.3 pg (27.0-31.0); MEAN PLATELET VOLUME 10.1 fl (9.6-12.3); RED BLOOD COUNT 4.69 10*6/uL (4.10-5.10); RED CELL DISTRI WIDTH 11.6 % (0-14.5); WHITE BLOOD COUNT 8.6 10*3/uL (4.8-10.8)
[2019-03-03 11:23] LABS: ALBUMIN 4.5 gm/dl (3.1-4.5); ALKALINE PHOSPHATASE 99 U/L (45-117); BUN 10 mg/dl (7-24); CHLORIDE 105 mmol/L (98-107); CHOLESTEROL 238 mg/dL (<200); CREATININE 0.81 mg/dL (0.55-1.02); HDL CHOLESTEROL 44 mg/dl (40-60); LDL CHOLESTEROL 150 mg/dL (9-159); SGOT/AST 21 IU/L (3-35); SGPT/ALT 24 U/L (12-78); SODIUM 138 mmol/L (136-145); TOTAL PROTEIN 8.8 gm/dL (6.4-8.2); TRIGLYCERIDES 220 mg/dl (<150); VLDL CHOLESTEROL 44 mg/dL (6-40)
[2019-03-03 11:29] LABS: THYROID STIM HORMONE (HS) 0.706 uIU/ml (0.358-4.75)
[2019-03-03 12:33] LABS: VITAMIN D, 25-HYDROXY 24.7 ng/mL (30-100)
[2019-03-04 06:09] LABS: FOLLICLE STIMULATING HORMONE 63.5 mIU/mL (.); LUTEINIZING HORMONE 004283 50.2 mIU/mL (.)
[2019-03-05 08:15] LABS: TESTOSTERONE FREE, (DIRECT) 0.7 pg/mL (0.0-4.2)
[2019-03-07 03:04] LABS: DEHYDROEPIANDROSTERONE 004100 246 ng/dL (31-701)
== END | disposition home or self-care (01) ==
LOC: LAB 10:11
PROVIDERS: Family Medicine
DX: R53.83 Other fatigue (principal); R51 Headache; R63.5 Abnormal weight gain; R41.3 Other amnesia

== ENCOUNTER → 2019-03-07 | Outpatient (CLI) | payer OTHER ==
[2019-03-08 06:05] LABS: TOTAL PROTEIN, SERUM 7.3 g/dL (6.0-8.5)
[2019-03-08 16:06] LABS: ALBUMIN 3.6 g/dL (2.9-4.4); ALPHA-1-GLOBULIN 0.2 g/dL (0.0-0.4); ALPHA-2-GLOBULIN 1.1 g/dL (0.4-1.0); BETA GLOBULIN 1.1 g/dL (0.7-1.3); GAMMA GLOBULIN 1.3 g/dL (0.4-1.8); GLOBULIN, TOTAL 3.7 g/dL (2.2-3.9); M-SPIKE Not Observed g/dL (Not Observed)
[2019-03-09 13:07] LABS: ALPHA-1-GLOBULIN, URINE 2.8 % (.); ALPHA-2-GLOBULIN, URINE 20.1 % (.); BETA GLOBULIN, URINE 28.2 % (.); GAMMA GLOBULIN, URINE 15.8 % (.); M-SPIKE, % Not Observed % (Not Observed); PROTEIN,TOTAL - URINE RANDOM 16.1 mg/dL (Not Estab.)
== END | disposition home or self-care (01) ==
LOC: LAB 09:55
PROVIDERS: Family Medicine
DX: E88.09 Other disorders of plasma-protein metabolism, not elsewhere classified (principal)

== ENCOUNTER → 2019-05-08 | Outpatient (CLI) | payer OTHER ==
[~2019-05-08] MED LIST changes: +MEDROL DOSEPAK4 MG PO; +NAPROSYN500 MG PO
== END | disposition home or self-care (01) ==
LOC: RAD 13:12
DX: M81.0 Age-related osteoporosis without current pathological fracture (principal); M41.9 Scoliosis, unspecified; Z90.710 Acquired absence of both cervix and uterus

== ENCOUNTER 2019-05-11 13:29 | Emergency (ER) | payer OTHER ==
[~2019-05-11] VITALS: Ht 157.4 cm; Wt 63.5 kg
[~2019-05-11 13:29] MED LIST changes: -MEDROL DOSEPAK4 MG PO; -NAPROSYN500 MG PO
[2019-05-11] MEDS ORDERED: NAPROSYN500 MG PO (15:36)
[2019-05-11] MEDS ORDERED: MEDROL DOSEPAK4 MG PO (15:36)
== END 2019-05-11 15:46 | disposition home or self-care (01) ==
LOC: ED 13:29
DX: G89.29 Other chronic pain (principal); M54.6 Pain in thoracic spine; M79.602 Pain in left arm; M79.601 Pain in right arm; R41.0 Disorientation, unspecified; R11.0 Nausea; Z91.041 Radiographic dye allergy status; Z88.0 Allergy status to penicillin; Z88.2 Allergy status to sulfonamides; Z79.899 Other long term (current) drug therapy; Z90.49 Acquired absence of other specified parts of digestive tract; Z90.710 Acquired absence of both cervix and uterus

== ENCOUNTER 2019-06-01 14:53 | Emergency (ER) | payer OTHER ==
[~2019-06-01] VITALS: Ht 157.4 cm; Wt 63.5 kg
[~2019-06-01 14:53] MED LIST changes: +MEDROL DOSEPAK4 MG PO; +NAPROSYN500 MG PO
[2019-06-01] MEDS ORDERED: IBU800 MG PO (16:47)
== END 2019-06-01 17:00 | disposition home or self-care (01) ==
LOC: ED 14:53
DX: S63.502A Unspecified sprain of left wrist, initial encounter (principal); M81.0 Age-related osteoporosis without current pathological fracture; Z90.710 Acquired absence of both cervix and uterus; Z91.041 Radiographic dye allergy status; Z88.0 Allergy status to penicillin; Z88.2 Allergy status to sulfonamides; Z79.899 Other long term (current) drug therapy; W01.0XXA Fall on same level from slipping, tripping and stumbling without subsequent striking against object, initial encounter; Y93.89 Activity, other specified; Y92.89 Other specified places as the place of occurrence of the external cause; Y99.8 Other external cause status

== ENCOUNTER 2019-06-10 10:36 | Emergency (ER) | payer OTHER ==
[~2019-06-10] VITALS: Ht 157.4 cm; Wt 63.5 kg
[2019-06-10] MEDS ORDERED: VALTREX1000 MG PO (12:15)
[2019-06-10] MEDS ORDERED: PREDNISONE20 M1 PO (12:15)
== END 2019-06-10 12:40 | disposition home or self-care (01) ==
LOC: ED 10:36
DX: B02.9 Zoster without complications (principal); F41.9 Anxiety disorder, unspecified; F32.9 Major depressive disorder, single episode, unspecified; F17.200 Nicotine dependence, unspecified, uncomplicated; Z88.0 Allergy status to penicillin; Z91.041 Radiographic dye allergy status; Z88.2 Allergy status to sulfonamides; Z79.2 Long term (current) use of antibiotics; Z79.899 Other long term (current) drug therapy; Z90.49 Acquired absence of other specified parts of digestive tract

== ENCOUNTER 2019-12-10 17:59 | Emergency (ER) | payer OTHER ==
[~2019-12-10] VITALS: Wt 59.0 kg
[~2019-12-10 17:59] MED LIST changes: +PREDNISONE20 M1 PO; +VALTREX1000 MG PO
[2019-12-10 18:31] LABS: BACTERIA 1+; BILIRUBIN NEGATIVE (NEGATIVE); BLOOD 3+ (NEGATIVE); CLARITY CLOUDY (CLEAR); COLOR YELLOW (YELLOW); GLUCOSE NEGATIVE (NEGATIVE); KETONE TRACE (NEGATIVE); LEUKO ESTERASE 2+ (NEGATIVE); MUCOUS 2+; NITRITE NEGATIVE (NEGATIVE); RBC 51-100 rbc/hpf (0-2); SPECIFIC GRAVITY 1.025 (1.005-1.030); WBC 51-100 wbc/hpf (0-5)
[2019-12-10] MEDS ORDERED: KEFLEX500 M1 PO (18:51)
[2019-12-10] MEDS ORDERED: PYRIDIUM100 MG PO (18:51)
== END 2019-12-10 19:07 | disposition home or self-care (01) ==
LOC: ED 17:59
PROVIDERS: Emergency Medicine
DX: N39.0 Urinary tract infection, site not specified (principal); F17.200 Nicotine dependence, unspecified, uncomplicated; Z91.041 Radiographic dye allergy status; Z88.0 Allergy status to penicillin; Z88.2 Allergy status to sulfonamides

== ENCOUNTER 2020-01-28 17:00 | Emergency (ER) | payer OTHER ==
[~2020-01-28] VITALS: Ht 157.4 cm; Wt 61.2 kg
[~2020-01-28 17:00] MED LIST changes: +KEFLEX500 M1 PO; +PYRIDIUM100 MG PO
== END 2020-01-28 19:54 | disposition home or self-care (01) ==
LOC: ED 17:00
DX: R51 Headache (principal); Z88.8 Allergy status to other drugs, medicaments and biological substances; Z88.0 Allergy status to penicillin; Z88.2 Allergy status to sulfonamides; Z79.899 Other long term (current) drug therapy

== ENCOUNTER → 2020-06-24 | Outpatient (CLI) | payer OTHER | END | disposition home or self-care (01) | LOC: RAD 16:14 | PROVIDERS: ATTEND Chiropractor | DX: M54.5 Low back pain (principal); R07.89 Other chest pain; M54.6 Pain in thoracic spine ==

== ENCOUNTER 2021-02-24 11:44 | Emergency (ER) | payer OTHER ==
[~2021-02-24] VITALS: Ht 157.4 cm; Wt 59.0 kg
== END 2021-02-24 14:15 | disposition home or self-care (01) ==
LOC: ED 11:44
DX: S93.402A Sprain of unspecified ligament of left ankle, initial encounter (principal); F17.200 Nicotine dependence, unspecified, uncomplicated; Z91.041 Radiographic dye allergy status; Z88.0 Allergy status to penicillin; Z88.2 Allergy status to sulfonamides; W18.39XA Other fall on same level, initial encounter; Y93.89 Activity, other specified; Y92.89 Other specified places as the place of occurrence of the external cause; Y99.8 Other external cause status

== ENCOUNTER → 2021-06-10 | Outpatient (CLI) | payer OTHER ==
[2021-06-10 10:06] LABS: FREE T4 1.12 ng/dl (0.76-1.46)
[2021-06-10 10:11] LABS: THYROID STIM HORMONE (HS) 0.819 uIU/ml (0.358-4.75)
[2021-06-10 11:02] LABS: VITAMIN D, 25-HYDROXY 16.4 ng/mL (30-100)
[2021-06-11 05:06] LABS: RHEUMATOID ARTHRITIS FACTOR 15.7 IU/mL (<14.0)
[2021-06-11 06:07] LABS: THYROID PEROXIDASE (TPO) AB 12 IU/mL (0-34)
[2021-06-11 15:07] LABS: THYROGLOBULIN ANTIBODY <1.0 IU/mL (0.0-0.9)
== END | disposition home or self-care (01) ==
LOC: LAB 09:32
PROVIDERS: ATTEND Psychiatry & Neurology Psychiatry
DX: R53.83 Other fatigue (principal)

== ENCOUNTER → 2021-08-14 | Outpatient (CLI) | payer OTHER ==
[2021-08-15 13:07] LABS: ANTI-RNP ANTIBODIES <0.2 AI (0.0-0.9); ANTISCLERODERMA-70 AB <0.2 AI (0.0-0.9); SJOGREN ANTI-SS-A <0.2 AI (0.0-0.9); SJOREN AB, ANTI-SS-B <0.2 AI (0.0-0.9)
[2021-08-16 00:06] LABS: CCP ANTIBODIES IGG/IGA 4 units (0-19)
== END | disposition home or self-care (01) ==
LOC: LAB 13:31
PROVIDERS: ATTEND Internal Medicine
DX: M05.79 Rheumatoid arthritis with rheumatoid factor of multiple sites without organ or systems involvement (principal); M79.642 Pain in left hand; M79.641 Pain in right hand

== ENCOUNTER → 2021-08-25 | Outpatient (CLI) | payer OTHER | END | disposition home or self-care (01) | LOC: RAD 13:59 | PROVIDERS: ATTEND Internal Medicine | DX: M81.0 Age-related osteoporosis without current pathological fracture (principal) ==

== ENCOUNTER → 2022-05-21 | Outpatient (CLI) | payer OTHER | END | disposition home or self-care (01) | LOC: US 00:49 | PROVIDERS: ATTEND Internal Medicine | DX: R10.30 Lower abdominal pain, unspecified (principal) ==

== ENCOUNTER 2022-06-16 10:03 | Emergency (ER) | payer OTHER ==
[~2022-06-16] VITALS: Ht 157.4 cm; Wt 65.8 kg
[2022-06-16 10:30] LABS: BILIRUBIN Negative (Negative); BLOOD Negative (Negative); CLARITY Clear (Clear); COLOR Yellow (Yellow); GLUCOSE Negative (Negative); KETONE Negative (Negative); LEUKO ESTERASE Negative (Negative); NITRITE Negative (Negative); UROBILINOGEN 0.2 E.U./dl (0.0-1.0)
[2022-06-16 10:47] LABS: BACTERIA 1+; WBC 0-2 wbc/hpf (0-5)
[2022-06-16 11:02] LABS: BASO % 0.4 % (0.0-1.0); EOS # 0.1 10*3/uL (0.0-0.4); EOS % 1.3 % (1.0-4.0); HEMATOCRIT 40.1 % (37.0-47.0); LYMPH # 3.1 10*3/uL (1.3-4.4); LYMPH % 31.2 % (27.0-41.0); MEAN CELL VOLUME 93.3 fl (81.0-99.0); MEAN CORPUSCULAR HGB 30.9 pg (27.0-31.0); MEAN CORPUSCULAR HGB CONC 33.2 g/dl (33.0-37.0); MEAN PLATELET VOLUME 10.3 fl (9.6-12.3); MONO # 0.6 10*3/uL (0.1-1.0); MONO % 6.2 % (3.0-9.0); NEUT % 60.6 % (47.0-73.0); PLATELET COUNT AUTOMATED 286 10*3/uL (130-400); RED CELL DISTRI WIDTH 12.3 % (0-14.5); WHITE BLOOD COUNT 9.9 10*3/uL (4.8-10.8)
[2022-06-16 11:17] LABS: ALKALINE PHOSPHATASE 87 U/L (46-116); BUN 8 mg/dl (9-23); CHLORIDE 107 mmol/L (98-107); LIPASE 28 U/L (12-53); POTASSIUM 3.7 mmol/L (3.4-5.1); SGPT/ALT 14 U/L (10-49); TOTAL PROTEIN 7.3 gm/dL (6.0-8.0)
[2022-06-16] MEDS ORDERED: DOXYCYCLINE HY100 M3 PO (12:03)
== END 2022-06-16 12:18 | disposition home or self-care (01) ==
LOC: ED 10:03
PROVIDERS: Family Medicine
DX: N39.0 Urinary tract infection, site not specified (principal); F41.9 Anxiety disorder, unspecified; F32.A Depression, unspecified; Z91.041 Radiographic dye allergy status; Z88.0 Allergy status to penicillin; Z88.2 Allergy status to sulfonamides; Z90.710 Acquired absence of both cervix and uterus; Z98.51 Tubal ligation status; Z98.890 Other specified postprocedural states

== ENCOUNTER → 2022-06-22 | Outpatient (CLI) | payer OTHER ==
[~2022-06-22] MED LIST changes: +DOXYCYCLINE HY100 M3 PO
== END | disposition home or self-care (01) ==
LOC: MRI 08:00
PROVIDERS: ATTEND Internal Medicine
DX: R10.2 Pelvic and perineal pain (principal); R93.2 Abnormal findings on diagnostic imaging of liver and biliary tract

== ENCOUNTER → 2022-06-24 | Outpatient (CLI) | payer OTHER | END | disposition home or self-care (01) | LOC: MRI 01:48 | PROVIDERS: ATTEND Internal Medicine | DX: K76.0 Fatty (change of) liver, not elsewhere classified (principal) ==

== ENCOUNTER 2022-10-07 15:11 | Emergency (ER) | payer OTHER ==
[~2022-10-07] VITALS: Ht 157.4 cm; Wt 59.0 kg
[2022-10-07 16:40] LABS: BASO # 0.1 10*3/uL (0.0-0.1); BASO % 0.4 % (0.0-1.0); EOS # 0.1 10*3/uL (0.0-0.4); EOS % 0.8 % (1.0-4.0); HEMATOCRIT 38.6 % (37.0-47.0); LYMPH # 3.6 10*3/uL (1.3-4.4); LYMPH % 30.2 % (27.0-41.0); MEAN CELL VOLUME 93.9 fl (81.0-99.0); MEAN CORPUSCULAR HGB 31.9 pg (27.0-31.0); MEAN CORPUSCULAR HGB CONC 33.9 g/dl (33.0-37.0); MEAN PLATELET VOLUME 10.4 fl (9.6-12.3); MONO # 0.6 10*3/uL (0.1-1.0); MONO % 5.1 % (3.0-9.0); NEUT # 7.4 10*3/uL (2.3-7.9); NEUT % 63.2 % (47.0-73.0); PLATELET COUNT AUTOMATED 302 10*3/uL (130-400); RED BLOOD COUNT 4.11 10*6/uL (4.10-5.10); RED CELL DISTRI WIDTH 12.3 % (0-14.5); WHITE BLOOD COUNT 11.8 10*3/uL (4.8-10.8)
[2022-10-07 17:06] LABS: ALKALINE PHOSPHATASE 89 U/L (46-116); BUN 6 mg/dl (9-23); CHLORIDE 107 mmol/L (98-107); POTASSIUM 3.7 mmol/L (3.4-5.1); SGPT/ALT 15 U/L (10-49); TOTAL PROTEIN 7.3 gm/dL (6.0-8.0)
[2022-10-07] MEDS ORDERED: IBUPROFEN600 MG PO (18:18)
== END 2022-10-07 18:42 | disposition home or self-care (01) ==
LOC: ED 15:11
PROVIDERS: Physician Assistant
DX: M54.2 Cervicalgia (principal); R63.4 Abnormal weight loss; F41.9 Anxiety disorder, unspecified; F32.A Depression, unspecified; Z91.041 Radiographic dye allergy status; Z88.0 Allergy status to penicillin; Z88.2 Allergy status to sulfonamides; Z98.890 Other specified postprocedural states; Z98.51 Tubal ligation status; Z90.710 Acquired absence of both cervix and uterus; Z90.49 Acquired absence of other specified parts of digestive tract; F17.200 Nicotine dependence, unspecified, uncomplicated

== ENCOUNTER → 2022-10-19 | Outpatient (CLI) | payer OTHER ==
[~2022-10-19] MED LIST changes: +IBUPROFEN600 MG PO
[2022-10-19 13:06] LABS: BASO % 0.3 % (0.0-1.0); EOS # 0.1 10*3/uL (0.0-0.4); EOS % 0.4 % (1.0-4.0); HEMATOCRIT 38.2 % (37.0-47.0); LYMPH # 2.8 10*3/uL (1.3-4.4); LYMPH % 22.7 % (27.0-41.0); MEAN CELL VOLUME 93.4 fl (81.0-99.0); MEAN CORPUSCULAR HGB 31.3 pg (27.0-31.0); MEAN CORPUSCULAR HGB CONC 33.5 g/dl (33.0-37.0); MEAN PLATELET VOLUME 10.2 fl (9.6-12.3); MONO # 0.7 10*3/uL (0.1-1.0); MONO % 5.3 % (3.0-9.0); NEUT # 8.9 10*3/uL (2.3-7.9); NEUT % 71.1 % (47.0-73.0); PLATELET COUNT AUTOMATED 291 10*3/uL (130-400); RED BLOOD COUNT 4.09 10*6/uL (4.10-5.10); RED CELL DISTRI WIDTH 12.1 % (0-14.5); WHITE BLOOD COUNT 12.5 10*3/uL (4.8-10.8)
[2022-10-19 13:44] LABS: ALKALINE PHOSPHATASE 88 U/L (46-116); BUN 7 mg/dl (9-23); CHLORIDE 109 mmol/L (98-107); CHOLESTEROL 184 mg/dL (<200); LDL CHOLESTEROL 117 mg/dL (9-159); POTASSIUM 3.7 mmol/L (3.4-5.1); SGPT/ALT 13 U/L (10-49); TOTAL PROTEIN 7.1 gm/dL (6.0-8.0); TRIGLYCERIDES 153 mg/dl (<150)
[2022-10-19 13:46] LABS: VITAMIN D, 25-HYDROXY 36.5 ng/mL (30-100)
[2022-10-19 15:27] LABS: BILIRUBIN Negative (Negative); BLOOD Negative (Negative); CLARITY Clear (Clear); COLOR Yellow (Yellow); GLUCOSE Negative (Negative); KETONE Trace (Negative); LEUKO ESTERASE Negative (Negative); NITRITE Negative (Negative); PH 5.5 (4.5-8.0)
[2022-10-19 15:36] LABS: MUCOUS 2+
[2022-10-20 13:06] LABS: ANTI-DSDNA ANTIBODIES 5 IU/mL (0-9); ANTI-RNP ANTIBODIES <0.2 AI (0.0-0.9); ANTICHROMATIN ANTIBODIES <0.2 AI (0.0-0.9); ANTISCLERODERMA-70 AB <0.2 AI (0.0-0.9); SJOGREN ANTI-SS-A <0.2 AI (0.0-0.9); SJOREN AB, ANTI-SS-B <0.2 AI (0.0-0.9)
== END | disposition home or self-care (01) ==
LOC: LAB 12:38
PROVIDERS: ATTEND Nurse Practitioner Family
DX: Z13.1 Encounter for screening for diabetes mellitus (principal); Z13.89 Encounter for screening for other disorder; Z13.29 Encounter for screening for other suspected endocrine disorder; Z13.6 Encounter for screening for cardiovascular disorders; R53.83 Other fatigue; Z79.890 Hormone replacement therapy

== ENCOUNTER → 2022-11-23 | Day surgery (SDC) | payer OTHER ==
[~2022-11-23] VITALS: Ht 157.4 cm; Wt 57.6 kg
[~2022-11-23] MED LIST changes: +CARAFATE1 G1 PO
[2022-11-23 07:38] VITALS: BP 114/81
[2022-11-23 08:24] VITALS: BP 96/56
[2022-11-23 08:39] VITALS: BP 110/72
[2022-11-23 08:54] VITALS: BP 100/63
[2022-11-23 09:00] VITALS: BP 104/67
== END ==
LOC: SDC 11-19 15:30
PROVIDERS: ATTEND Surgery
DX: R19.4 Change in bowel habit (principal); R10.9 Unspecified abdominal pain; R11.2 Nausea with vomiting, unspecified; K63.5 Polyp of colon; K62.1 Rectal polyp; K29.50 Unspecified chronic gastritis without bleeding; G43.909 Migraine, unspecified, not intractable, without status migrainosus; F41.9 Anxiety disorder, unspecified; F32.A Depression, unspecified; J40 Bronchitis, not specified as acute or chronic; M19.90 Unspecified osteoarthritis, unspecified site; F43.10 Post-traumatic stress disorder, unspecified; N80.9 Endometriosis, unspecified; F17.210 Nicotine dependence, cigarettes, uncomplicated; Z98.51 Tubal ligation status; Z90.710 Acquired absence of both cervix and uterus; Z98.890 Other specified postprocedural states

== ENCOUNTER → 2023-10-19 | Outpatient (CLI) | payer OTHER ==
[2023-10-19 10:23] LABS: FREE T4 1.23 ng/dl (0.89-1.76)
== END | disposition home or self-care (01) ==
LOC: LAB 09:46
PROVIDERS: ATTEND Nurse Practitioner Family
DX: Z13.220 Encounter for screening for lipoid disorders (principal); Z13.29 Encounter for screening for other suspected endocrine disorder

== ENCOUNTER 2023-11-13 21:31 | Emergency (ER) | payer OTHER ==
[~2023-11-13] VITALS: Ht 162.5 cm; Wt 54.4 kg
[2023-11-13] MEDS ORDERED: SODIUM CHLORIDE 0.9% 1,000 ML IV ONE (22:15)
[2023-11-13] MEDS ORDERED: diphenhydrAMINE hydrochloride 50 MG/ML VIAL IV ONE (22:15)
[2023-11-13] MEDS ORDERED: Ondansetron Hydrochloride 4 MG/2 ML VIAL IV ONE (22:15)
[2023-11-13] MEDS ORDERED: Ketorolac Tromethamine 30 MG/ML VIAL IV ONE (22:15)
[2023-11-13 22:28] LABS: BASO % 0.5 % (0.0-1.0); HEMATOCRIT 39.1 % (37.0-47.0); LYMPH % 16.6 % (27.0-41.0); MEAN CELL VOLUME 92.7 fl (81.0-99.0); MEAN CORPUSCULAR HGB 31.5 pg (27.0-31.0); MEAN PLATELET VOLUME 9.8 fl (9.6-12.3); MONO # 0.4 10*3/uL (0.1-1.0); MONO % 7.3 % (3.0-9.0); NEUT # 4.5 10*3/uL (2.3-7.9); NEUT % 75.3 % (47.0-73.0); PLATELET COUNT AUTOMATED 288 10*3/uL (130-400); RED BLOOD COUNT 4.22 10*6/uL (4.10-5.10); RED CELL DISTRI WIDTH 11.9 % (0-14.5); WHITE BLOOD COUNT 5.9 10*3/uL (4.8-10.8)
[2023-11-13 22:47] LABS: BUN 8 mg/dl (9-23); CHLORIDE 106 mmol/L (98-107); POTASSIUM 3.4 mmol/L (3.4-5.1)
== END 2023-11-14 01:53 | disposition home or self-care (01) ==
LOC: ED 21:31
PROVIDERS: Internal Medicine
DX: B34.9 Viral infection, unspecified (principal); Z20.822 Contact with and (suspected) exposure to COVID-19; R11.2 Nausea with vomiting, unspecified; F41.9 Anxiety disorder, unspecified; F32.A Depression, unspecified; F17.200 Nicotine dependence, unspecified, uncomplicated; Z91.041 Radiographic dye allergy status; Z88.0 Allergy status to penicillin; Z88.2 Allergy status to sulfonamides; Z98.890 Other specified postprocedural states; Z90.49 Acquired absence of other specified parts of digestive tract; Z90.710 Acquired absence of both cervix and uterus; Z98.51 Tubal ligation status

== ENCOUNTER → 2024-01-04 | Outpatient (CLI) | payer OTHER | END | disposition home or self-care (01) | LOC: LAB 10:13 | PROVIDERS: ATTEND Nurse Practitioner Family | DX: J02.9 Acute pharyngitis, unspecified (principal) ==

== ENCOUNTER → 2024-01-21 | Outpatient (CLI) | payer OTHER ==
[2024-01-21 08:07] LABS: BASO % 0.5 % (0.0-1.0); EOS # 0.1 10*3/uL (0.0-0.4); EOS % 1.2 % (1.0-4.0); LYMPH # 2.7 10*3/uL (1.3-4.4); LYMPH % 32.2 % (27.0-41.0); MEAN CELL VOLUME 96.8 fl (81.0-99.0); MEAN CORPUSCULAR HGB 31.8 pg (27.0-31.0); MEAN CORPUSCULAR HGB CONC 32.8 g/dl (33.0-37.0); MEAN PLATELET VOLUME 10.1 fl (9.6-12.3); MONO # 0.7 10*3/uL (0.1-1.0); MONO % 7.6 % (3.0-9.0); NEUT % 58.1 % (47.0-73.0); PLATELET COUNT AUTOMATED 310 10*3/uL (130-400); RED BLOOD COUNT 4.03 10*6/uL (4.10-5.10); RED CELL DISTRI WIDTH 11.9 % (0-14.5); WHITE BLOOD COUNT 8.5 10*3/uL (4.8-10.8)
[2024-01-21 08:38] LABS: ALKALINE PHOSPHATASE 98 U/L (46-116); BUN 7 mg/dl (9-23); CHLORIDE 109 mmol/L (98-107); POTASSIUM 3.5 mmol/L (3.4-5.1); SGPT/ALT 14 U/L (5-49); TOTAL PROTEIN 7.5 gm/dL (6.0-8.0)
[2024-01-21 08:41] LABS: VITAMIN D, 25-HYDROXY 35.7 ng/mL (30-100)
[2024-01-24 13:06] LABS: ANTI-DSDNA ANTIBODIES 4 IU/mL (0-9); ANTI-RNP ANTIBODIES <0.2 AI (0.0-0.9); ANTICHROMATIN ANTIBODIES <0.2 AI (0.0-0.9); ANTISCLERODERMA-70 AB <0.2 AI (0.0-0.9); SJOGREN ANTI-SS-A <0.2 AI (0.0-0.9); SJOREN AB, ANTI-SS-B <0.2 AI (0.0-0.9)
== END | disposition home or self-care (01) ==
LOC: LAB 07:20 → RAD 07:30
PROVIDERS: ATTEND Nurse Practitioner Family
DX: M81.0 Age-related osteoporosis without current pathological fracture (principal); R23.3 Spontaneous ecchymoses; F41.9 Anxiety disorder, unspecified; F33.9 Major depressive disorder, recurrent, unspecified; M25.50 Pain in unspecified joint; Z90.710 Acquired absence of both cervix and uterus

== ENCOUNTER 2024-04-04 09:26 | Emergency (ER) | payer OTHER ==
[~2024-04-04] VITALS: Wt 54.4 kg
[2024-04-04] MEDS ORDERED: AVPAK AZITHROM250 MG PO (10:36)
== END 2024-04-04 10:42 | disposition home or self-care (01) ==
LOC: ED 09:26
DX: J40 Bronchitis, not specified as acute or chronic (principal); F41.9 Anxiety disorder, unspecified; Z87.891 Personal history of nicotine dependence; Z98.890 Other specified postprocedural states; Z90.710 Acquired absence of both cervix and uterus; Z90.49 Acquired absence of other specified parts of digestive tract; Z98.51 Tubal ligation status; Z91.041 Radiographic dye allergy status; Z88.0 Allergy status to penicillin; Z88.2 Allergy status to sulfonamides; Z79.899 Other long term (current) drug therapy

== ENCOUNTER 2024-06-29 12:27 | Emergency (ER) | payer SELFPAY ==
[~2024-06-29] VITALS: Ht 157.4 cm; Wt 56.7 kg
[~2024-06-29 12:27] MED LIST changes: +AVPAK AZITHROM250 MG PO
[2024-06-29] MEDS ORDERED: hydrOXYzine pamoate 25 MG CAP PO ONE (12:45)
[2024-06-29 12:58] LABS: BASO % 0.5 % (0.0-1.0); EOS # 0.1 10*3/uL (0.0-0.4); EOS % 0.7 % (1.0-4.0); HEMATOCRIT 38.5 % (37.0-47.0); MEAN CELL VOLUME 91.4 fl (81.0-99.0); MEAN CORPUSCULAR HGB 31.4 pg (27.0-31.0); MEAN CORPUSCULAR HGB CONC 34.3 g/dl (33.0-37.0); MEAN PLATELET VOLUME 9.9 fl (9.6-12.3); MONO # 0.6 10*3/uL (0.1-1.0); MONO % 7.5 % (3.0-9.0); NEUT # 4.4 10*3/uL (2.3-7.9); NEUT % 53.3 % (47.0-73.0); PLATELET COUNT AUTOMATED 326 10*3/uL (130-400); RED BLOOD COUNT 4.21 10*6/uL (4.10-5.10); RED CELL DISTRI WIDTH 11.8 % (0-14.5); WHITE BLOOD COUNT 8.3 10*3/uL (4.8-10.8)
[2024-06-29 13:16] LABS: BUN 9 mg/dl (9-23); CHLORIDE 106 mmol/L (98-107); POTASSIUM 3.5 mmol/L (3.4-5.1)
== END 2024-06-29 13:30 | disposition home or self-care (01) ==
LOC: ED 12:27
PROVIDERS: Physician Assistant Medical
DX: F41.9 Anxiety disorder, unspecified (principal); F32.A Depression, unspecified; R20.0 Anesthesia of skin; R42 Dizziness and giddiness; F17.200 Nicotine dependence, unspecified, uncomplicated; Z91.041 Radiographic dye allergy status; Z88.0 Allergy status to penicillin; Z88.2 Allergy status to sulfonamides; Z90.49 Acquired absence of other specified parts of digestive tract; Z90.711 Acquired absence of uterus with remaining cervical stump; Z98.890 Other specified postprocedural states